=== PATIENT | female | born 1965 | race Caucasian/White ===

== ENCOUNTER 2022-01-02 11:12 | Emergency (ER) | payer OTHER, SELFPAY ==
--- NOTE | 2022-01-02 | DI.US.S_ITS ---
PROCEDURE: US PERIPH VENOUS LOW EXTREM LT INDICATIONS: LEFT LEG PAIN TECHNIQUE: Real-time imaging, as well as color and pulse Doppler interrogation, were performed of the lower extremity deep veins from the inguinal ligament to the popliteal fossa. COMPARISON: None. FINDINGS: The common femoral, femoral and popliteal veins are normally compressible, and free of intraluminal thrombus. Color and pulse Doppler demonstrate normal phasic intraluminal flow. There is normal augmentation response to distal compression maneuver. IMPRESSION: No evidence of deep venous thrombosis, left lower extremity Approved by: Seamus Ocampo M.D. on 01/02/2022 at 11:00
[2022-01-02 11:20] VITALS: BP 169/95; PULSE 84; RESP 16; TEMP 36.4; O2SAT 100; BMI 21.1
[2022-01-02 12:08] VITALS: BP 129/74
--- NOTE | 2022-01-02 12:42 | ED.EXTPRO ---
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 It was 2 days in the car. For the last 3 days she has had some tenderness on the lateral aspect of her left calf and she is looking for reassurance that she does not have a DVT. There is no specific erythema, swelling, obvious area of injury. She notes that she does have lower extremity varicose veins and sometimes these can be annoying however the pain lasted for 3 days and she wanted to be sure before they took off for [place] which is where their vacation home is located. She describes no fevers, chills, cough, palpitations, abdominal pain, swelling in feet or ankles. Review of Systems Review of Systems Narrative: Remainder of complete review of systems is otherwise unremarkable except for that included in the HPI. Patient History Medical History (Updated 01/02/22 @ 12:50 by Shellie Kenney MD) History of pulmonary embolism Social History Smoking Status: Never smoker Smoking Status: Never smoker Alcohol type: wine Substance Use Type: does not use Exam Initial Vital Signs Initial Vital Signs: Vital Signs Temperature 97.6 F 01/02/22 11:20 Pulse Rate 84 01/02/22 11:20 Respiratory Rate 16 01/02/22 11:20 Blood Pressure 169/95 H 01/02/22 11:20 Pulse Oximetry 100 01/02/22 11:20 General: Alert appropriate in no acute distress Respiratory: Able to speak in full sentences, no obvious respiratory distress Skin: No obvious rashes, warm and dry Neurologic: Grossly intact no obvious asymmetries or abnormalities Psych: appropriate insight and affect, cooperative Extremity: The area of tenderness on the lateral aspect of the left calf is physically unremarkable. No redness, swelling, fullness or other palpable abnormalities appreciated Course Vital Signs Vital signs: Vital Signs - 8 hr 01/02/22 11:20 01/02/22 12:08 Temperature 97.6 F Pulse Rate 84 Respiratory Rate 16 Blood Pressure 169/95 H 129/74 Pulse Oximetry 100 MDM - Extremity (Nontraumatic) Imaging Data US - DVT: Radiologist's Impression: FINDINGS:? The common femoral, femoral and popliteal veins are normally compressible, and free of intraluminal thrombus.? Color and pulse Doppler demonstrate normal phasic intraluminal flow.? There is normal augmentation response to distal compression maneuver. ? ? IMPRESSION:? ? No evidence of deep venous thrombosis, left lower extremity ? ? ? Approved by: Seamus Ocampo M.D. on 01/02/2022 at 11:00? MDM Narrative Medical decision making narrative: 56-year-old woman on Coumadin for prior DVT and pulmonary emboli with tenderness to the lateral aspect of the left calf. No other physical finding to associate with the tenderness. No DVT is appreciated on ultrasound, no traumas appreciated on clinical exam no evidence of infection or superficial thrombophlebitis. This point reassurance is given and she is safe for home discharge Discharge Plan Departure Patient Disposition: Home Clinical Impression: Pain of left calf Activity Restrictions/Additional Instructions: Thank you for coming in today The ultrasound of your left calf did not show any blood clots. On clinical exam, I do not suspect infection, superficial thrombophlebitis and there is no significant swelling. At this time, please continue your warfarin as instructed. You can use compression socks to help if you feel that your varicose veins are bothering you. Tylenol can be helpful and keeping her legs elevated as much as possible when you are sitting may also be helpful. If you have worsening signs or symptoms, please feel free to return to the ER
== END 2022-01-02 13:04 | disposition home or self-care (01) ==
PROVIDERS: Emergency Provider Emergency Medicine
DX: M79.662 Pain in left lower leg (principal); Z79.01 Long term (current) use of anticoagulants; Z86.718 Personal history of other venous thrombosis and embolism
CPT/HCPCS: 93971; 99283

== ENCOUNTER → 2022-05-03 12:57 | Outpatient (CLI) | payer OTHER, SELFPAY ==
--- NOTE | 2022-05-03 13:00 | DI.RAD.S_ITS ---
PROCEDURE: XR TOE RT MIN 2V INDICATIONS: pinky toe fracture TECHNIQUE: 3 views of the small toe(s) acquired. COMPARISON: None. FINDINGS: Bones: Oblique minimally displaced shaft fracture of the proximal phalanx of the small toe. No suspicious bony lesions. Soft tissues: No suspicious soft tissue densities. IMPRESSION: Oblique, minimally displaced shaft fracture of the proximal phalanx of the small toe. Dictated by: Ward Christy M.D. on 05/03/2022 at 13:58 Approved by: Ward Christy M.D. on 05/03/2022 at 14:00
== END ==
PROVIDERS: Referring Provider Student in an Organized Health Care Education/Training Program; Visit Provider Student in an Organized Health Care Education/Training Program
DX: S92.514A Nondisplaced fracture of proximal phalanx of right lesser toe(s), initial encounter for closed fracture (principal); M79.674 Pain in right toe(s); X58.XXXA Exposure to other specified factors, initial encounter
CPT/HCPCS: 73660